=== PATIENT | female | born 1975 | race Caucasian/White ===

== ENCOUNTER 2019-03-18 07:10 | Inpatient (IN) | payer MEDICAID, SELFPAY ==
[2019-03-18] VITALS (18 sets, daily range): BP systolic 76–175; BP diastolic 39–104; PULSE 53–77; RESP 12–18; TEMP 36.2–37.7; O2SAT 95–99; BMI 37.8
--- NOTE | 2019-03-18 07:47 | PLAC_PTH ---
PATIENT: AMINA FAULKNER LOC: [facility] U#:[id number] AGE/SX: 44/F ROOM: WP013 RE03/18/[address]: Dr. Marlee Ramirez MD : 1975 BED: 1 DIS: 03/21/2019 SPEC #: [id number] RECD: 03/18/19 11:23 STATUS: LUZ MARINA REHolden #: [id number] STONE: 03/18/19 07:[address]: Marlee Ramirez DEPT: SURGICAL PATHOLOGY RECD BY: Morgan Posada ENTERED: 03/20/19 08:27 SP TYPE: PLACENTA OTHR DR: Dr. Rylee Brooks, DO Tissues: Placenta, NOS Procedures: Surgery Specimen Level V HEADER OPERATION: Labor and delivery PRE-OP DIAGNOSIS: Preeclampsia, section TISSUE SUBMITTED: Placenta MICROSCOPIC DIAGNOSIS Placenta: Placental disc - third trimester placenta (620 gm). - Focal areas of peripheral infarction (largest measuring 2 cm in greatest dimension. - Increased intervillous and perivillous fibrin deposition. Membranes - acute chorioamnionitis. Umbilical cord - three blood vessels. See comment. SJ:kate 03/21/19 COMMENT Increased spiraling of umbilical cord is noted towards the end of the umbilical cord. MICROSCOPIC DESCRIPTION Slides are reviewed. GROSS DESCRIPTION SPECIMEN: PLACENTA / CLINICAL INFORMATION: A. Weight: 4.15 kg B. Gestational Age: 42 weeks C. Sex: Male PLACENTAL WEIGHT (POST FIXATION): 620 gm PLACENTAL DIMENSIONS: 24 x 12 x 3.5 cm PLACENTAL SHAPE: The body of the placenta is partially disrupted and ovoid shape, however appears to be complete. PLACENTAL WEIGHT FOR GESTATIONAL AGE: >99th percentile MEMBRANES - Present A. Insertion: Marginal B. Site of rupture from edge: The membranes are fragmented and appear to be ruptured at the margin of the placental disc C. Color of membrane: Lynn-bland D. Abnormalities: None UMBILICAL CORD - Present A. Color: Lynn-bland B. Insertion: Paracentral C. Length: 52 cm D. Diameter: 1.5 cm E. Number of vessels: Three F. Abnormalities: Increased spiraling is noted towards the end of the umbilical cord PLACENTAL DISC - Present A. Color of surface: Lynn-bland B. surface abnormalities: None C. Maternal cotyledons: Intact with minimal tears D. Attached retro placental clot: No clot E. Cut surface: Dark red and spongy F. Lesions: Sections reveal four lynn, indurated areas in the peripheral portion of the placenta, the largest measuring 2 cm in greatest dimension. G. Separate clot: Also present in the container and also adherent to the maternal surface are multiple blood clots weighing 30 gm and measuring in aggregate 8 x 4 x 3 cm. SECTIONS SUBMITTED: 1. Membrane roll 2. Cord, maternal end, one lesion. 3. Cord, end, one lesion 4. Placental disc, and maternal surfaces, two lesions 5. Placental disc, and maternal surfaces 6. Placental disc, and maternal surfaces SJ:kate 03/20/19 TC:2 CPT: 54832
[2019-03-18] MEDS: Lactated Ringers 1,000 ML 999 ML IV ×2 (08:00→17:15)
[2019-03-18] MEDS: Cefazolin 2 GM in 0.9% Normal Saline 100 ML IV (08:00)
[2019-03-18 08:05] LABS: Absolute Lymphocyte Count 0.76 X10^3/uL (0.83-4.51); Absolute Neutrophil Count 17.6 X10^3/uL (2.0-7.7); Basophil# 0.02 X10^3/uL; Basophil% 0.1 % (0-1); Hematocrit 42.2 % (37-47); Hemoglobin 14.1 g/dL (12.0-15.0); Lymphocyte # 0.76 X10^3/ul (4.0); Lymphocyte % 3.9 % (19-41); Mean Corp Hgb Conc 33.4 g/dL (32-36); Mean Corpuscular Hgb 29.7 pg (27.0-32.0); Mean Corpuscular Volume 88.8 fL (81-99); Mean Platelet Vol. 11.7 fl (6.2-12.0); Monocyte% 5.1 % (0-10); NRBC Flagged by Analyzer 0 % (0-5); Neutrophil # 17.62 X10^3/uL (2.7-7.7); Neutrophil % 90.4 % (47-70); Platelet Count 257 K/mm3 (150-450); RBC Distribution Width CV 13.5 % (11.6-14.6); RBC Distribution Width SD 44.2 fl (35.1-43.9); Red Blood Count 4.75 M/mm3 (4.2-5.4); White Blood Count 19.5 K/mm3 (4.4-11.0)
[2019-03-18 08:22] LABS: AST(SGOT) 30 U/L (15-37); Alanine Aminotransfer ALT/SGPT 25 U/L (13-56); Creatinine, Serum 0.75 mg/dL (0.55-1.02); EST Glomerular Filtration Rate 90 mL/min (>60); Est Glom Filt Rate - Afr Amer 109 mL/min (>60); Uric Acid 4.6 mg/dL (2.6-6.0)
[2019-03-18 08:34] LABS: Partial Thromboplast Time 27.3 Seconds (24.1-36.2)
[2019-03-18] MEDS: Carboprost Tromethamine 250 MCG/ML Ampul IM (08:35)
[2019-03-18 08:40] LABS: International Normalized Ratio 0.9
--- NOTE | 2019-03-18 08:40 | PCM.HP.OB ---
- Problem List (1) Arrest of dilation, delivered, current hospitalization Status: Acute (2) arrhythmia affecting , antepartum Status: Acute (3) S/P primary low transverse Status: Acute (4) Advanced maternal age (AMA) in Status: Acute (5) Grand multipara Status: Acute (6) Elevated blood pressure affecting in third trimester, antepartum Status: Acute History Date of Admission: 03/18/19 Final ROBERT: 03/04/19 Gestational age: 42 Weeks and 0 Days History of this : This is a 44 year-old, H&P 842 weeks gestational age presents in active labor. Patient had been laboring at a birthing center with a director of player personnel overnight and had some elevated blood pressures there and initial blood pressure here was 170 over 90s followed by 140s over 90s. Upon initial evaluation patient was in significant pain with contractions and was 8 to 9 cm with severe swelling of the cervix. heart rate tracing had moderate variability and initially in a normal baseline but recurrent variable decelerations and then a noted arrhythmia was heard. After discussing with the logging specialist she had recently noted the arrhythmia during labor however had not had her on continuous monitoring. Due to the inability to assess the health of the baby and presence of an arrhythmia and recurrent decelerations and arrest of dilation the decision for primary was made. Surgical History: Surgical History (Last Updated 03/18/19 @ 09:35 by Marlee Ramirez MD) H/O hernia repair Z98.890, Z87.19 Allergies No Known Allergies Allergy (Verified 03/18/19 07:53) Smoking Status: Never smoker Alcohol: None Number of Fetus(es): 1 NST - FHR Rate Baby A Baseline: 140 audible arrhythmia q 3-4 beats with dropped beat Variability:: Moderate Accelerations:: None Decelerations:: Variable NST Reactive:: Non-Reactive FHR Category:: Category II Uterine Activity:: q 2-4 History Past Pregnancies: Past Pregnancies 8 previous vaginal deliveries. One was a twin vaginal delivery or both were lost and delivered at 6 months gestational age. Last delivery was 6 years ago. One miscarriage previously. no known Genetic abnormalities and no congenital defects reported from patient, logging specialist, her .. Labs: Mom's Problem List Problem Status Onset Code Arrest of dilation, delivered, current hospitalization Acute O62.1 arrhythmia affecting , antepartum Acute O36.8390 S/P primary low transverse Acute Z98.891 Advanced maternal age (AMA) in Acute Grand multipara Acute Z64.1 Elevated blood pressure affecting in third trimester, antepartum Acute O16.3 Mom's Labs & Results 03/18/19 03/18/19 03/18/19 07:30 07:30 07:30 WBC 19.5 H RBC 4.75 Hgb 14.1 Hct 42.2 MCV 88.8 MCH 29.7 MCHC 33.4 RDW Std Deviation 44.2 H RDW Coeff of Lavell 13.5 Plt Count 257 MPV 11.7 Immature Gran % (Auto) 0.500 Neut % (Auto) 90.4 H Lymph % (Auto) 3.9 L Banner % (Auto) 5.1 Eos % (Auto) 0.0 Baso % (Auto) 0.1 Absolute Neuts (auto) 17.6 H Absolute Lymphs (auto) 0.76 L Nucleated RBC % 0 PT INR APTT Creatinine Est GFR (MDRD) Af Amer Est GFR (MDRD) Non-Af Uric Acid AST ALT U Random Total Protein Urine Creatinine Protein/Creatinin Ratio RPR Pending Hep Bs Antigen Hepatitis C Antibody HIV 1&2 Antibody Rubella IgG Antibody > 500.0 Blood Type Antibody Screen 03/18/19 03/18/19 03/18/19 07:30 07:30 07:30 WBC RBC Hgb Hct MCV MCH MCHC RDW Std Deviation RDW Coeff of Lavell Plt Count MPV Immature Gran % (Auto) Neut % (Auto) Lymph % (Auto) Banner % (Auto) Eos % (Auto) Baso % (Auto) Absolute Neuts (auto) Absolute Lymphs (auto) Nucleated RBC % PT 12.0 INR 0.9 APTT 27.3 Creatinine Est GFR (MDRD) Af Amer Est GFR (MDRD) Non-Af Uric Acid AST ALT U Random Total Protein Urine Creatinine Protein/Creatinin Ratio RPR Hep Bs Antigen Non-Reactive Hepatitis C Antibody Non-Reactive HIV 1&2 Antibody Non-Reactive Rubella IgG Antibody Blood Type A POSITIVE Antibody Screen NEGATIVE 03/18/19 03/18/19 07:30 09:19 WBC RBC Hgb Hct MCV MCH MCHC RDW Std Deviation RDW Coeff of Lavell Plt Count MPV Immature Gran % (Auto) Neut % (Auto) Lymph % (Auto) Banner % (Auto) Eos % (Auto) Baso % (Auto) Absolute Neuts (auto) Absolute Lymphs (auto) Nucleated RBC % PT INR APTT Creatinine 0.75 Est GFR (MDRD) Af Amer 109 Est GFR (MDRD) Non-Af 90 Uric Acid 4.6 AST 30 ALT 25 U Random Total Protein Pending Urine Creatinine Pending Protein/Creatinin Ratio Pending RPR Hep Bs Antigen Hepatitis C Antibody HIV 1&2 Antibody Rubella IgG Antibody Blood Type Antibody Screen Expected Infant Delivery Method: Stat Section Review of Systems Constitutional: Denies: Fever Eyes: Denies: Blurred vision HEENT: Denies: Difficulty Hearing Cardiovascular: Denies: Chest Pain Respiratory: Denies: Cough, Shortness of Breath Gastrointestinal: Reports: Abdominal Pain, Nausea, Vomiting Gynecological: Reports: Vaginal bleeding - minimal, Vaginal discharge - SROM Skin: Denies: Dryness, Lesions Physical Exam General: Alert, - - uncomfortable with contractions HEENT: Atraumatic, Normocephalic. Negative for: Thyromegaly, Lymphadenopathy Cardiovascular: Regular rate Lungs: Normal air movement Abdomen: Soft, Non Tender, Gravid Neurological: Deep Tendon Reflexes 2+/4 and Symmetrical, Neuro grossly intact. Negative for: Clonus TURBO ELECTRIC OPERATOR: Normal external genitalia. Negative for: Vulvar lesions Estimated gestational size: Large for gestational age Presentation: Cephalic Cervix Dilation (cm): 8.5 Station: -2 Effacement (%): 70 - swollen Assessment/Plan All Active Problems Arrest of dilation, delivered, current hospitalization (Acute) arrhythmia affecting , antepartum (Acute) S/P primary low transverse (Acute) Advanced maternal age (AMA) in (Acute) Grand multipara (Acute) Elevated blood pressure affecting in third trimester, antepartum (Acute) This is a 44 year-old, @ 42 weeks gestational age with arrest of dilation, suspected preeclampsia, arrhythmia and recurrent heart rate decelerations Proceeded with stat for delivery. Apgars 8 and 9 and patient tolerated surgery well under general anesthesia. Labs sent and due to severely elevated blood pressures we will start magnesium sulfate and labetalol per hypertensive protocol for management..
[2019-03-18] MEDS: Oxytocin 30 units/NS 500 ml 30 UNITS/500 ML IV.SOLN 167 UNITS IV (08:50)
[2019-03-18] MEDS: Lactated Ringers 1,000 ML 50 ML IV (09:00)
[2019-03-18 09:25] LABS: HIV - WCH Non-Reactive (Nonreactive); Hepatitis B Surface Antigen Non-Reactive (Nonreactive); Hepatitis C Antibody Non-Reactive (Nonreactive)
[2019-03-18 09:34] LABS: Rubella IgG > 500.0 IU/mL
--- NOTE | 2019-03-18 09:40 | OP.PCM_ITS ---
Problem List (1) Arrest of dilation, delivered, current hospitalization Status: Acute (2) arrhythmia affecting , antepartum Status: Acute (3) S/P primary low transverse Status: Acute (4) Advanced maternal age (AMA) in Status: Acute (5) Grand multipara Status: Acute (6) Elevated blood pressure affecting in third trimester, antepartum Status: Acute (7) Variable heart rate decelerations, antepartum Status: Acute (8) hemorrhage Status: Acute Delivery Classification: Stat Final ROBERT: 03/04/19 Gestational age: 42 Weeks and 0 Days tare worker: Nicole Aleman Type of Anesthesia:: General Special Medications: surgical snow Implants Used: none Date of Procedure: 03/18/19 Pre-Operative Diagnosis: Recurrent heart rate decelerations, arrhythmia, arrest of dilation descent Post-Operative Diagnosis: Same Indications for : Distress, Arrrest of Descent Description of Procedure: [facility] and was evaluated and cervix was noted to not be completely dilated and significantly swollen and unable to be pushed back. Recurrent variable decelerations were seen and then a arrhythmia was heard dropping a beat every third beat. The decision for primary due to heart rate decelerations and arrest of dilation and descent were made and patient was taken back for emergent delivery. Amos catheter was placed. The patient was placed in the dorsal supine position with leftward tilt. Patient was prepped and draped in the normal sterile fashion and then there was some contamination of the upper part of the area and therefore a Betadine additional splash prep was also applied to the area. General anesthesia was induced. Pfannenstiel skin incision was made with the scalpel and carried through to the underlying layer of fascia with the scalpel. Fascia was nicked in the midline and the incision extended laterally. The peritoneum was entered digitally. The incision was stretched and a low transverse uterine incision was made with the scalpel. The 's head was delivered atraumatically followed by the anterior and posterior shoulders without complication the rest of the infant delivered. The cord was clamped and cut and the was handed off to awaiting nurse. The placenta was delivered spontaneously immediately following and was noted to be intact and have a three- vessel cord. The uterus was exteriorized cleared of all clots and debris, and the incision was closed in a double layer closure using #1 Monocryl. The ovaries and fallopian tubes were noted to be within normal limits. The uterus was returned to the maternal abdomen and gutters were cleared of all clots and debris. The peritoneum was closed with 3-0 Monocryl in a running fashion. Gloves were changed prior to fascial closure. Fascia was closed with 0 PDS in a running fashion. Subcutaneous tissue was copiously irrigated and the skin was closed with 3-0 Monocryl in a subcuticular fashion. Mepilex dressing was applied without complication. Patient was taken to recovery in stable condition. Amniotic Membrane Rupture Type: Spontaneous Amniotic Fluid Description: Thick meconium Placenta [facility] Specimen(s) sent to pathology: yes Drain: Amos to straight drain Fluids Replaced: Crystalloid Cord Entanglement: None Esitmated Blood Loss (ml): 1100 Infant Gender: Male (1 minute): 8 (5 minute): 9 Delayed cord clamping: No Antibiotic Given: Ancef 3 grams IV x1, Zithromax 500 mg/5 mL X1 Complications: - - mild hemorrhage due to mild atony - Admit VTE Documentation VTE Present on Admission: No VTE Mechan Device Prophylaxis: SCD's Multi Select Codes - Urinary/Genital Urinary/Genital CPT Codes: 71580 delivery+ Care([facility])
[2019-03-18 09:48] LABS: Protein, Urine (Random) 225.8 mg/dL (<11.9); Protein:Creat Ratio 910 mg/g CRE (0-200)
[2019-03-18] MEDS: Magnesium Sulfate 4gm/100mL 4 GM/100 ML IV.SOLN. IV (09:55)
[2019-03-18] MEDS: HYDROmorphone 1 MG/ML Syringe IV (11:16)
[2019-03-18 11:21] LABS: Pathology Specimen OB SEE PATHOLOGY REPORT
[2019-03-18] MEDS: Magnesium Sulfate 20 GM/500 ML BAG IV (12:28)
[2019-03-18] MEDS: Labetalol 100 MG Tablet PO ×2 (13:16→15:06)
[2019-03-18] MEDS: Ketorolac 30 MG/ML Syringe IV ×2 (15:06→19:23)
[2019-03-18 15:38] LABS: Color, Urine Yellow (Yellow); Glucose, Dipstick Normal (Normal); Ketone-Dipstick Negative (Negative); Leukocyte Esterase-Dipstick 100 /ul (Negative); Nitrite-Dipstick Negative (Negative); Occult Blood-Urine 150 /ul (Negative); Protein-Dipstick Negative (Negative); Urine Bilirubin Dipstick Negative (Negative); Urine Clarity Sl. Cloudy (Clear); Urine Urobilinogen Normal (Normal)
[2019-03-18 15:52] LABS: Red Blood Cells-Urine 10-25 SEEN /hpf (0-5); Squamous Epithelial Cells - UA 0-5 SEEN /hpf (5-10); White Blood Cells 10-25 SEEN /hpf (0-5)
[2019-03-18 15:53] LABS: Bacteria RARE /hpf (None Seen); Mucous, Urine 1+ /hpf (<or=2+)
[2019-03-18 17:10] LABS: Bedside Glucose 122 mg/dL (70-110)
[2019-03-18 17:16] LABS: Hemoglobin 10.6 g/dL (12.0-15.0)
--- NOTE | 2019-03-18 17:16 | NURSING ---
1700 pt called out for help using the call light, she asked me to put the baby in the crib. i took the baby and placed him in the crib when i turned around pt's eyes were rolling back and she was slamming her head into the rocking chair. i placed my hands on both sides of her head to keep her from hurting herself i called for help. Magnesium was shut off. Staff assisted pt back into bed, labs were drawn. was updated and she asked we run a LR bolus and send labs for an H/H. She asked that the magnesium be kept off.
--- NOTE | 2019-03-18 17:24 | NURSING ---
1650 pt called this nurse into the room,asked me to put the baby in the crib, after placing the baby in the crib i turned back to the pt and her eyes were rolled up into her head and she was throwing her head back into the chair. this nurse held her head and called for help, after a few minutes staff was able to transfer the pt back into the bed. prior to transfer bp was 76/39 p 53 r 12 p ox 97% on room air. 1656 bp 100/56 p 68 made aware of pt's condition she gave orders to stop the magnesium and to give a bolus of fluid and to do an H&H. All of this was done. 1720 pt has stated several times she is hungry even after lunch today she states she is hungry, blood sugar obtained with results of 122. 1730 pt's supper is here and she is eating.
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
[2019-03-18] MEDS: Enoxaparin 40 MG/0.4 ML Syringe SC (20:08)
[2019-03-18] MEDS: Lactated Ringers 1,000 ML 100 ML IV (20:10)
--- NOTE | 2019-03-18 22:43 | NURSING ---
Order to hold labetalol for BP less than 120/60 recieved via TOR[facility] from Dr Ramirez via Alex Pemberton rn
[2019-03-19] VITALS (7 sets, daily range): BP systolic 101–133; BP diastolic 52–64; PULSE 70–96; RESP 16–24; TEMP 37.1–39.2; O2SAT 97
[2019-03-19] MEDS: Acetaminophen 500 MG Tablet 1000 MG PO ×3 (00:33→21:54)
[2019-03-19] MEDS: Ketorolac 30 MG/ML Syringe IV ×4 (02:06→20:27)
[2019-03-19 05:25] LABS: Hematocrit 25.4 % (37-47); Hemoglobin 8.5 g/dL (12.0-15.0); Mean Corp Hgb Conc 33.5 g/dL (32-36); Mean Corpuscular Hgb 30.5 pg (27.0-32.0); Mean Platelet Vol. 11.1 fl (6.2-12.0); Platelet Count 197 K/mm3 (150-450); RBC Distribution Width CV 14.2 % (11.6-14.6); RBC Distribution Width SD 47.6 fl (35.1-43.9); Red Blood Count 2.79 M/mm3 (4.2-5.4); White Blood Count 13.3 K/mm3 (4.4-11.0)
[2019-03-19] MEDS: 0.9% Saline Lock 10 ML Syringe IV ×4 (06:02→20:27)
--- NOTE | 2019-03-19 08:48 | PCM.PN.OB ---
Patient Problems: Active and Suspected Problems Arrest of dilation, delivered, current hospitalization (Acute) arrhythmia affecting , antepartum (Acute) S/P primary low transverse (Acute) Advanced maternal age (AMA) in (Acute) Grand multipara (Acute) Elevated blood pressure affecting in third trimester, antepartum (Acute) Variable heart rate decelerations, antepartum (Acute) hemorrhage (Acute) Anemia due to blood loss, acute (Acute) Preeclampsia, severe (Acute) Subjective: doing well no complaints pain controlled no CP SOB N V ambulating well tolerating po lochia moderate, going well. had episode last night where her bp dropped and she was dizzy, ? psych issues as states there were issues in the past and she was in counseling. - Physical Exam General: Alert, Oriented x3, Cooperative Vital Signs Temp Pulse Resp BP Pulse Ox 99.1 F 81 16 104/57 L 99 03/19/19 04:15 03/19/19 04:15 03/19/19 04:15 03/19/19 04:15 03/18/19 18:28 Oxygen Delivery Method Room Air Weight: 220 lb Body Mass Index (BMI) 37.8 Intake and Output for Last 24 Hours 03/17/19 03/18/19 03/19/19 23:59 23:59 23:59 Intake Total 3881.66 / 3881.66 974.7 / 974.7 Output Total 2800 / 2800 1400 / 1400 Balance 1081.66 / 1081.66 -425.3 / -425.3 Laboratory Tests Past 24 Hrs 03/18/19 03/18/19 03/18/19 07:30 07:30 09: WBC RBC Hgb Hct MCV MCH MCHC RDW Std Deviation RDW Coeff of Lavell Plt Count MPV Urine Color Urine Clarity Urine pH Ur Specific [place] Urine Protein Urine Glucose (UA) Urine Ketones Urine Occult Blood Urine Nitrite Urine Bilirubin Urine Urobilinogen Ur Leukocyte Esterase Urine RBC Urine WBC Ur Squamous Epith Cells Urine Bacteria Urine Mucus U Random Total Protein 225.8 H Urine Creatinine 248.00 Protein/Creatinin Ratio 910 H Hep Bs Antigen Non-Reactive Hepatitis C Antibody Non-Reactive HIV 1&2 Antibody Non-Reactive Rubella IgG Antibody > 500.0 03/18/19 03/18/19 03/18/19 15:00 15:00 17:05 WBC RBC Hgb 10.6 L Hct MCV MCH MCHC RDW Std Deviation RDW Coeff of [place]ell Plt Count MPV Urine Color Yellow Urine Clarity Sl. Cloudy Urine pH 5.0 Ur Specific [place] 1.020 Urine Protein Negative Urine Glucose (UA) Normal Urine Ketones Negative Urine Occult Blood 150 H Urine Nitrite Negative Urine Bilirubin Negative Urine Urobilinogen Normal Ur Leukocyte Esterase 100 H Urine RBC 10-25 SEEN Urine WBC 10-25 SEEN Ur Squamous Epith Cells 0-5 SEEN Urine Bacteria RARE Urine Mucus 1+ U Random Total Protein Cancelled Urine Creatinine Cancelled Protein/Creatinin Ratio Cancelled Hep Bs Antigen Hepatitis C Antibody HIV 1&2 Antibody Rubella IgG Antibody 03/19/19 05:15 WBC 13.3 H RBC 2.79 L Hgb 8.5 L Hct 25.4 L MCV 91.0 MCH 30.5 MCHC 33.5 RDW Std Deviation 47.6 H RDW Coeff of Lavell 14.2 Plt Count 197 MPV 11.1 Urine Color Urine Clarity Urine pH Ur Specific [place] Urine Protein Urine Glucose (UA) Urine Ketones Urine Occult Blood Urine Nitrite Urine Bilirubin Urine Urobilinogen Ur Leukocyte Esterase Urine RBC Urine WBC Ur Squamous Epith Cells Urine Bacteria Urine Mucus U Random Total Protein Urine Creatinine Protein/Creatinin Ratio Hep Bs Antigen Hepatitis C Antibody HIV 1&2 Antibody Rubella IgG Antibody POC Glucose 03/18/19 17:08 POC Glucose 122 H Medical Necessity - Tobacco Use Smoking Status: Never smoker Assessment/Plan All Active Problems Arrest of dilation, delivered, current hospitalization (Acute) arrhythmia affecting , antepartum (Acute) S/P primary low transverse (Acute) Advanced maternal age (AMA) in (Acute) Grand multipara (Acute) Elevated blood pressure affecting in third trimester, antepartum (Acute) Variable heart rate decelerations, antepartum (Acute) hemorrhage (Acute) Anemia due to blood loss, acute (Acute) Preeclampsia, severe (Acute) s/p LTCS PPD # 1 1. routine post care 2. breast feeding- support given 3. rh positive 4. rubella immune 5. bps low so magnesium held and no labetalol at this time. continue to monitor 6. anemia- recommend repeat lab in 4 hours to confirm stability. iron.
[2019-03-19] MEDS: Iron Polysaccharide Complex 150 MG CAPSULE PO (09:52)
[2019-03-19 11:16] LABS: Hemoglobin 8.1 g/dL (12.0-15.0)
[2019-03-19] MEDS: Enoxaparin 40 MG/0.4 ML Syringe SC (20:28)
--- NOTE | 2019-03-19 20:57 | RAD_ITS ---
STUDY: X-RAY CHEST REASON FOR EXAM: Female, 44 years old. Fever and pain TECHNIQUE: PA and lateral views of the chest. COMPARISON: None. FINDINGS: The lungs are clear and expanded. There is no demonstrated pleural abnormality. Normal size heart. Normal mediastinum and jory. Normal visualized pulmonary arteries. There is atherosclerotic tortuosity of the aortic arch and descending thoracic aorta. There are diffuse degenerative changes of the visualized thoracic spine. Normal visualized ribs, clavicles, and shoulders. There is no demonstrated abnormality of the visualized soft tissue structures of the upper abdomen. RAD/Chest PA and Lateral IMPRESSION: 1. No acute cardiopulmonary process. Electronically Signed: Cheko Hook MD (Brooks) at 21:43 EDT , Service support ,
[2019-03-19] MEDS: Azithromycin 250 MG Tablet 500 MG PO (21:54)
[2019-03-19] MEDS: Cefazolin 2 GM in 0.9% Normal Saline 100 ML IV (22:05)
[2019-03-19] MEDS: Lactated Ringers 1,000 ML 30 ML IV (22:05)
--- NOTE | 2019-03-19 23:43 | NURSING ---
2020 Temp 102.5.Pt complains for MARIE, muscle aching and sore throat. Dr Ramirez called - orders received for urine culture, rapid throat strep, flu swabs, azithromycin 500 mg po today then 250 mg daily x 4 days, Ancef 2 gm IV q 8 hrs and CXR.
--- NOTE | 2019-03-19 23:47 | NURSING ---
2124 to x-ray per WC. 2134 Back from x-ray.
[2019-03-20] VITALS (10 sets, daily range): BP systolic 125–154; BP diastolic 57–75; PULSE 85–106; RESP 16–22; TEMP 36.7–38.7; O2SAT 96–99
--- NOTE | 2019-03-20 00:02 | NURSING ---
Dr Ramirez notified that pt now has harsh cough and is requesting cough medicine. Order for Pushpasin received.
[2019-03-20] MEDS: guaiFENesin 10 ML UDC (200MG/10ML) PO ×2 (00:25→13:46)
[2019-03-20] MEDS: 0.9% Saline Lock 10 ML Syringe IV ×6 (02:03→18:57)
[2019-03-20] MEDS: Ketorolac 30 MG/ML Syringe IV ×2 (02:03→08:37)
[2019-03-20] MEDS: Acetaminophen 500 MG Tablet 1000 MG PO ×2 (06:09→13:45)
[2019-03-20] MEDS: Cefazolin 2 GM in 0.9% Normal Saline 100 ML IV ×2 (06:14→13:38)
[2019-03-20] MEDS: Iron Polysaccharide Complex 150 MG CAPSULE PO (08:37)
[2019-03-20 11:08] LABS: Absolute Lymphocyte Count 0.87 X10^3/uL (0.83-4.51); Absolute Neutrophil Count 7.8 X10^3/uL (2.0-7.7); Basophil# 0.01 X10^3/uL; Basophil% 0.1 % (0-1); Eosinophil# 0.01 X10^3/uL; Eosinophils% 0.1 % (0-5); Hematocrit 26.2 % (37-47); Hemoglobin 8.6 g/dL (12.0-15.0); Lymphocyte # 0.87 X10^3/ul (4.0); Lymphocyte % 9.5 % (19-41); Mean Corp Hgb Conc 32.8 g/dL (32-36); Mean Corpuscular Hgb 30.7 pg (27.0-32.0); Mean Corpuscular Volume 93.6 fL (81-99); Mean Platelet Vol. 10.7 fl (6.2-12.0); Monocyte# 0.36 X10^3/uL; Monocyte% 3.9 % (0-10); NRBC Flagged by Analyzer 0 % (0-5); Neutrophil # 7.83 X10^3/uL (2.7-7.7); Neutrophil % 85.9 % (47-70); POSITIVE COUNT YES; POSITIVE MORPHOLOGY YES; Platelet Count 208 K/mm3 (150-450); RBC Distribution Width CV 14.4 % (11.6-14.6); RBC Distribution Width SD 49.5 fl (35.1-43.9); White Blood Count 9.1 K/mm3 (4.4-11.0)
[2019-03-20 11:31] LABS: Differential Indicated SCAN CRITERIA MET
--- NOTE | 2019-03-20 12:20 | CASEMGMT ---
Social Work Following up with MOB on car seat and safe place for to sleep. MOB stating that MOB's daughter is brining in car seat today and that FOB is working on getting a crib/bassinet. MOB stating that there will be safe place for infant to sleep prior to MOB's/Infants discharge. This clinical social work therapist stressing the importance of having a safe place for to sleep, MOB voicing understanding and denying any financial concerns or inability to be able to afford/purchase a crib/bassinet. MOB aware that social work will continue to follow up on bassinet/crib status. This clinical social work therapist providing MOB with general resource guide, Help Me Grow, depression, and safe sleeping information. MOB during encounter. MOB stating that is going well and confirming to have a connection with infant. MOB presenting with a pleasant affect. MOB stating that family was in yesterday and are supportive. Nursing staff voicing no concern of MOB ability to be able to care for . Will continue to follow as needed. Lidia JARQUIN, FELIPE
[2019-03-20] MEDS: Senna/Docusate Sodium 1 Tablet PO (13:45)
--- NOTE | 2019-03-20 14:06 | PN.OBGYN_ITS ---
Patient Problems: Active and Suspected Problems Preeclampsia, severe (Acute) Anemia due to blood loss, acute (Acute) Arrest of dilation, delivered, current hospitalization (Acute) arrhythmia affecting , antepartum (Acute) S/P primary low transverse (Acute) Advanced maternal age (AMA) in (Acute) Grand multipara (Acute) Elevated blood pressure affecting in third trimester, antepartum (Acute) Variable heart rate decelerations, antepartum (Acute) hemorrhage (Acute) Subjective: doing well no complaints pain controlled no CP SOB N V ambulating well tolerating po lochia moderate, going well fever last night- some cough but normal chest x ray. uterus appropriate tenderness, no foul discharge. milk starting to come in - Physical Exam General: Alert, Oriented x3 Lungs: Clear to auscultation Cardiovascular: Regular rate Abdomen: Soft Vital Signs Temp Pulse Resp BP Pulse Ox 98.8 F 97 18 143/75 H 99 03/20/19 13:00 03/20/19 12:20 03/20/19 12:20 03/20/19 12:20 03/20/19 12:20 Oxygen Delivery Method Room Air Weight: 220 lb Body Mass Index (BMI) 37.8 Intake and Output for Last 24 Hours 03/18/19 03/19/19 03/20/19 23:59 23:59 23:59 Intake Total 3881.66 / 3881.66 1086.2 / 1086.2 118.5 / 118.5 Output Total 2800 / 2800 2350 / 2350 Balance 1081.66 / 1081.66 -1263.8 / -1263.8 118.5 / 118.5 Microbiology Past 72 Hours 03/19/19 21:10 Group A Streptococcus Rapid Screen - Preliminary Mucosa - Throat 03/19/19 22:00 Influenza Types A,B Direct FA (AMALIA) - Final Interface Orders Laboratory Tests Past 24 Hrs 03/20/19 10:50 WBC 9.1 RBC 2.80 L Hgb 8.6 L Hct 26.2 L MCV 93.6 MCH 30.7 MCHC 32.8 RDW Std Deviation 49.5 H RDW Coeff of Lavell 14.4 Plt Count 208 MPV 10.7 Immature Gran % (Auto) 0.500 Neut % (Auto) 85.9 H Lymph % (Auto) 9.5 L [place] % (Auto) 3.9 Eos % (Auto) 0.1 Baso % (Auto) 0.1 Absolute Neuts (auto) 7.8 H Absolute Lymphs (auto) 0.87 Nucleated RBC % 0 Differential Comment COMMENT Medical Necessity - Tobacco Use Smoking Status: Never smoker Assessment/Plan All Active Problems Preeclampsia, severe (Acute) Anemia due to blood loss, acute (Acute) Arrest of dilation, delivered, current hospitalization (Acute) arrhythmia affecting , antepartum (Acute) S/P primary low transverse (Acute) Advanced maternal age (AMA) in (Acute) Grand multipara (Acute) Elevated blood pressure affecting in third trimester, antepartum (Acute) Variable heart rate decelerations, antepartum (Acute) hemorrhage (Acute) s/p LTCS PPD # 2 1. routine post care 2. breast feeding- support given 3. rh positive 4. rubella immune 5. bps low so magnesium held and no labetalol at this time. continue to monitor 6. anemia- recommend repeat lab in 4 hours to confirm stability. iron. 7. febrile overnight- started on ancef and azithromycin, some cough negative CXR, no tachycardia and white count decreasing. no obvious source of infection
[2019-03-20] MEDS: Naproxen 250 MG Tablet PO (14:37)
--- NOTE | 2019-03-20 18:04 | VDLE_ITS ---
Reason For Study: Pain RIGHT LEFT GSV is normal. GSV is normal. CFV is compressible, spontaneous, phasic, CFV is compressible, spontaneous, phasic, competent and demonstrates normal competent, and demonstrates normal augmentation. augmentation. FV is compressible, spontaneous, phasic, FV is compressible, spontaneous, phasic, competent and demonstrates normal competent and demonstrates normal augmentation. augmentation. POP V is compressible, spontaneous, phasic, POP V is compressible, spontaneous, phasic, competent and demonstrates normal competent and demonstrates normal augmentation. augmentation. T/P Trunk is compressible. T/P Trunk is compressible. PTV is compressible. PTV is compressible. RT PerV is compressible. LT PerV is compressible. Procedure Exam performed portable in patient room. A preliminary report was called and/or faxed to [facility] Pt's nurse. Interpretation Summary No evidence for acute deep venous thrombosis bilateral lower extremities with patent and compressible bilateral great saphenous veins. Ordering Physician: Marlee Ramirez Referring Physician: Rylee Brooks Performed By: Marleen Prieto RVT
--- NOTE | 2019-03-20 18:07 | PCM.PN.OB ---
Patient Problems: Active and Suspected Problems Preeclampsia, severe (Acute) Anemia due to blood loss, acute (Acute) Arrest of dilation, delivered, current hospitalization (Acute) arrhythmia affecting , antepartum (Acute) S/P primary low transverse (Acute) Advanced maternal age (AMA) in (Acute) Grand multipara (Acute) Elevated blood pressure affecting in third trimester, antepartum (Acute) Variable heart rate decelerations, antepartum (Acute) hemorrhage (Acute) Subjective: intermittent fevers- no CP SOB co left flank pain. good urine output - Physical Exam General: Alert, Oriented x3 Lungs: Normal air movement Cardiovascular: Regular rate Abdomen: Soft, Non Tender Extremities: - - left flank pain Vital Signs Temp Pulse Resp BP Pulse Ox 99.5 F H 106 H 18 132/58 H 97 03/20/19 17:50 03/20/19 16:30 03/20/19 16:30 03/20/19 16:30 03/20/19 16:30 Oxygen Delivery Method Room Air Weight: 220 lb Body Mass Index (BMI) 37.8 Intake and Output for Last 24 Hours 03/18/19 03/19/19 03/20/19 23:59 23:59 23:59 Intake Total 3881.66 / 3881.66 1086.2 / 1086.2 233.0 / 233.0 Output Total 2800 / 2800 2350 / 2350 Balance 1081.66 / 1081.66 -1263.8 / -1263.8 233.0 / 233.0 Microbiology Past 72 Hours 03/19/19 21:10 Group A Streptococcus Rapid Screen - Preliminary Mucosa - Throat 03/19/19 22:00 Influenza Types A,B Direct FA (AMALIA) - Final Interface Orders Laboratory Tests Past 24 Hrs 03/20/19 10:50 WBC 9.1 RBC 2.80 L Hgb 8.6 L Hct 26.2 L MCV 93.6 MCH 30.7 MCHC 32.8 RDW Std Deviation 49.5 H RDW Coeff of Lavell 14.4 Plt Count 208 MPV 10.7 Immature Gran % (Auto) 0.500 Neut % (Auto) 85.9 H Lymph % (Auto) 9.5 L [place] % (Auto) 3.9 Eos % (Auto) 0.1 Baso % (Auto) 0.1 Absolute Neuts (auto) 7.8 H Absolute Lymphs (auto) 0.87 Nucleated RBC % 0 Differential Comment COMMENT Medical Necessity - Tobacco Use Smoking Status: Never smoker Assessment/Plan All Active Problems Preeclampsia, severe (Acute) Anemia due to blood loss, acute (Acute) Arrest of dilation, delivered, current hospitalization (Acute) arrhythmia affecting , antepartum (Acute) S/P primary low transverse (Acute) Advanced maternal age (AMA) in (Acute) Grand multipara (Acute) Elevated blood pressure affecting in third trimester, antepartum (Acute) Variable heart rate decelerations, antepartum (Acute) hemorrhage (Acute) s/p LTCS PPD # 2 1. routine post care 2. breast feeding- support given 3. rh positive 4. rubella immune 5. bps low so magnesium held and no labetalol at this time. continue to monitor 6. anemia sec blood loss- stable. iron. 7. febrile still intermittently- started on ancef and azithromycin, switched to ceftriaxone and azithro, questionable pyelonephritis based on flank pain
[2019-03-20] MEDS: Ceftriaxone 1 GM/50 ML BAG IV (19:04)
[2019-03-20] MEDS: oxyCODONE 5 MG Tablet PO (21:05)
[2019-03-20] MEDS: Enoxaparin 40 MG/0.4 ML Syringe SC (21:09)
[2019-03-20] MEDS: Azithromycin 250 MG Tablet PO (21:29)
[2019-03-21 01:20] VITALS: BP 121/64; PULSE 85; RESP 16; TEMP 36.8; O2SAT 98
[2019-03-21] MEDS: Acetaminophen 500 MG Tablet 1000 MG PO ×2 (01:27→13:31)
[2019-03-21 06:21] LABS: Absolute Lymphocyte Count 1.04 X10^3/uL (0.83-4.51); Absolute Neutrophil Count 8.4 X10^3/uL (2.0-7.7); Basophil# 0.02 X10^3/uL; Basophil% 0.2 % (0-1); Eosinophil# 0.11 X10^3/uL; Hematocrit 23.3 % (37-47); Hemoglobin 7.7 g/dL (12.0-15.0); Lymphocyte # 1.04 X10^3/ul (4.0); Lymphocyte % 9.9 % (19-41); Mean Corpuscular Hgb 30.6 pg (27.0-32.0); Mean Corpuscular Volume 92.5 fL (81-99); Mean Platelet Vol. 9.6 fl (6.2-12.0); Monocyte# 0.82 X10^3/uL; Monocyte% 7.8 % (0-10); NRBC Flagged by Analyzer 0 % (0-5); Neutrophil # 8.43 X10^3/uL (2.7-7.7); Neutrophil % 80.3 % (47-70); Platelet Count 224 K/mm3 (150-450); RBC Distribution Width CV 14.2 % (11.6-14.6); RBC Distribution Width SD 48.6 fl (35.1-43.9); Red Blood Count 2.52 M/mm3 (4.2-5.4); White Blood Count 10.5 K/mm3 (4.4-11.0)
[2019-03-21 08:30] VITALS: BP 133/65; PULSE 88; RESP 18; TEMP 36.7; O2SAT 98
[2019-03-21] MEDS: 0.9% Saline Lock 10 ML Syringe IV (08:34)
[2019-03-21] MEDS: Naproxen 250 MG Tablet PO (08:35)
[2019-03-21] MEDS: Senna/Docusate Sodium 1 Tablet PO (08:36)
[2019-03-21] MEDS: Iron Polysaccharide Complex 150 MG CAPSULE PO (08:40)
--- NOTE | 2019-03-21 12:19 | CASEMGMT ---
Social Work Following up with MOB in room to assess for MOB having a safe place for to sleep and car seat. MOB stating to have a crib set up for infant at home and this social work administrator was able to see that the car seat was in MOB's room. MOB cousin present in room and MOB identifies as another support person within the community. MOB presenting with a positive and engaged affect. All questions answered. PLAN: Infant to discharge to home with MOB, FOB and family. Lidia JARQUIN, FELIPE
--- NOTE | 2019-03-21 13:10 | PCM.PN.OB ---
Subjective: Patient continued to be intermittently febrile until started on ceftriaxone and then now has had a significant improvement in symptoms and is doing well without chest pain shortness of breath and pain is controlled. - Physical Exam General: Alert, Oriented x3 Lungs: Clear to auscultation, Normal air movement Abdomen: Soft, Non Tender, Non-Distended Vital Signs Temp Pulse Resp BP Pulse Ox 98.0 F 88 18 133/65 H 98 03/21/19 08:30 03/21/19 08:30 03/21/19 08:30 03/21/19 08:30 03/21/19 08:30 Oxygen Delivery Method Room Air Weight: 220 lb Body Mass Index (BMI) 37.8 Intake and Output for Last 24 Hours 03/19/19 03/20/19 03/21/19 23:59 23:59 23:59 Intake Total 1086.2 / 1086.2 283.0 / 283.0 Output Total 2350 / 2350 Balance -1263.8 / -1263.8 283.0 / 283.0 Microbiology Past 72 Hours 03/19/19 21:15 Urine Culture - Final Urine, Clean Catch Culture exhibits no growth. 03/19/19 21:10 Group A Streptococcus Rapid Screen - Final Mucosa - Throat 03/19/19 22:00 Influenza Types A,B Direct FA (AMALIA) - Final Interface Orders Laboratory Tests Past 24 Hrs 03/21/19 06:10 WBC 10.5 RBC 2.52 L Hgb 7.7 L Hct 23.3 L MCV 92.5 MCH 30.6 MCHC 33.0 RDW Std Deviation 48.6 H RDW Coeff of Lavell 14.2 Plt Count 224 MPV 9.6 Immature Gran % (Auto) 0.800 Neut % (Auto) 80.3 H Lymph % (Auto) 9.9 L [place] % (Auto) 7.8 Eos % (Auto) 1.0 Baso % (Auto) 0.2 Absolute Neuts (auto) 8.4 H Absolute Lymphs (auto) 1.04 Nucleated RBC % 0 Medical Necessity - Tobacco Use Smoking Status: Never smoker Assessment/Plan All Active Problems Pyelonephritis (Acute) Preeclampsia, severe (Acute) Anemia due to blood loss, acute (Acute) Arrest of dilation, delivered, current hospitalization (Acute) arrhythmia affecting , antepartum (Acute) S/P primary low transverse (Acute) Advanced maternal age (AMA) in (Acute) Grand multipara (Acute) Elevated blood pressure affecting in third trimester, antepartum (Acute) Variable heart rate decelerations, antepartum (Acute) hemorrhage (Acute) s/p LTCS PPD # 3 1. routine post care 2. breast feeding- support given 3. rh positive 4. rubella immune 5. Preeclampsia - bps low so magnesium held and no labetalol at this time. continue to monitor 6. anemia sec blood loss- stable. iron. 7. Suspect pyelonephritis patient started on ceftriaxone. Improving.
[2019-03-21 13:11] VITALS: BP 143/67; PULSE 94; RESP 18; TEMP 36.8; O2SAT 98
--- NOTE | 2019-03-21 13:11 | DS.PCM_ITS ---
Discharge Date and Diagnosis Date of Admission: 03/18/19 Date of Discharge: 03/21/19 - Primary Discharge Diagnosis Active and Suspected Problems Arrest of dilation, delivered, current hospitalization (Acute) arrhythmia affecting , antepartum (Acute) S/P primary low transverse (Acute) Advanced maternal age (AMA) in (Acute) Grand multipara (Acute) Elevated blood pressure affecting in third trimester, antepartum (Acute) Variable heart rate decelerations, antepartum (Acute) hemorrhage (Acute) Hospital Course and Treatment Imaging Results: neg cxr and doppler of lower extremities Operations: - - LTCS Summary of Care Provided: The patient is a 44 year old F presented in active labor with arrest of descent and swelling of the cervix. Patient had received care from a service line layer in the community and had been laboring at the birthing center without any cervical change past 9 cm for several hours. Upon initial evaluation there was significant swelling of the cervix noted and patient was very uncomfortable and initial heart rate evaluation showed moderate variability with recurrent periodic variable decelerations. Then a arrhythmia was noted and due to suspected distress a low transverse was performed. Patient underwent delivery well without complication and was given preoperative and postoperative antibiotics and then postoperatively she developed a persistent fever and was started on Ancef and azithromycin, she had some cough and initial shortness of breath and a negative chest x-ray. She also had some back pain and after 24 hours was still intermittently febrile so Ancef was changed to ceftriaxone and then the patient remained afebrile and had an improvement in her back pain so pyelonephritis was suspected. Upon further questioning of the patient, patient had had latent symptoms prior to being admitted to the hospital with underlying back pain. Patient was stable for discharge to home on Keflex and pain medications - Physical Exam Vital Signs Temp Pulse Resp BP Pulse Ox 98.0 F 88 18 133/65 H 98 03/21/19 08:30 03/21/19 08:30 03/21/19 08:30 03/21/19 08:30 03/21/19 08:30 Oxygen Delivery Method Room Air Weight: 220 lb Body Mass Index (BMI) 37.8 Intake and Output for Last 24 Hours 03/19/19 03/20/19 03/21/19 23:59 23:59 23:59 Intake Total 1086.2 / 1086.2 283.0 / 283.0 Output Total 2350 / 2350 Balance -1263.8 / -1263.8 283.0 / 283.0 Microbiology Past 72 Hours 03/19/19 21:15 Urine Culture - Final Urine, Clean Catch Culture exhibits no growth. 03/19/19 21:10 Group A Streptococcus Rapid Screen - Final Mucosa - Throat 03/19/19 22:00 Influenza Types A,B Direct FA (AMALIA) - Final Interface Orders Laboratory Tests Past 24 Hrs 03/21/19 06:10 WBC 10.5 RBC 2.52 L Hgb 7.7 L Hct 23.3 L MCV 92.5 MCH 30.6 MCHC 33.0 RDW Std Deviation 48.6 H RDW Coeff of Lavell 14.2 Plt Count 224 MPV 9.6 Immature Gran % (Auto) 0.800 Neut % (Auto) 80.3 H Lymph % (Auto) 9.9 L [place] % (Auto) 7.8 Eos % (Auto) 1.0 Baso % (Auto) 0.2 Absolute Neuts (auto) 8.4 H Absolute Lymphs (auto) 1.04 Nucleated RBC % 0 Discharge Diet: No Restrictions Discharge Activity: Return to Normal Activity Home Medications: Medications to take at Discharge Cephalexin [Keflex] 500 mg PO Q6 12 Days #28 cap 03/21/19 Naproxen [Naprosyn] 250 - 500 mg PO Q8H PRN PRN #30 tab 03/21/19 Oxycodone HCl/Acetaminophen [Percocet 5-325] 1 - 2 tab PO Q4H PRN PRN 7 Days #15 tab 03/21/19 Following Prescrptions Were Given to Patient: Cephalexin [Keflex] 500 mg PO Q6 12 Days #28 cap Transmission Status: Received by [facility] Naproxen [Naprosyn] 250 - 500 mg PO Q8H PRN PRN #30 tab PRN Reason: MILD PAIN Transmission Status: Received by [facility] Oxycodone HCl/Acetaminophen [Percocet 5-325] 1 - 2 tab PO Q4H PRN PRN 7 Days #15 tab PRN Reason: Pain Transmission Status: Received by [facility] Primary Care Physician: Rylee Brooks DO [Primary Care Provider] - Medical Necessity - Tobacco Use Smoking Status: Never smoker Meaningful Use Info Meaningful Use Diagnoses (Choose all that apply): None applicable
--- NOTE | 2019-03-21 13:11 | DCINST_ITS ---
Discharge Diet: No Restrictions Discharge Activity: May Not Drive - for 2 weeks, May not drive while taking narcotic pain medications., May Shower, May Take a Tub Bath - in 7 days May resume sexual activity in: 4-6 weeks Lifting Restrictions: 20 pounds Additional Activity Instructions:: Nothing in the vagina for 4-6 weeks. You may return to work/school in 6 weeks. Call your doctor if your incision/area has: Continuous Slow Oozing, Sudden Increased Bleeding, Increased Pain/ Swelling, Increased Redness, Foul Smelling Discharge Call your doctor if you observe: Fever of 101 or Higher, Using more than one pad per hour - for 2 hours Suture Line Care: Avoid Pulling/Pushing, Avoid Pinching/Bending Cleanse incision/area with: Keep Dressing Clean & Dry Additional Instructions: If you experience any of the following, contact your healthcare provider. * Bleeding that soaks a pad every hour for 2 hours * Fever 100.4 or higher * Unrelieved incision or abdominal pain * Swelling, redness, discharge or bleeding from your incision or episiotomy site * Your incision begins to separate * Problems urinating (including inability to urinate or burning while urinating). * Visual changes * Severe headache * Flu-like symptoms * Pain or redness in one of both of your breasts * Pain, warmth, tenderness or swelling in your legs, especially the calf area * Frequent nausea and vomiting * Symptoms of depression or anxiety If you experience any of the following, call 911 or go to the nearest Emergency Room. * Chest pain * Problems breathing * Seizure activity * Partial or complete paralysis of a body part, slurred speech, weakness or drooping of the face, or a sudden inability to walk or hold your balance Allergies/Adverse Reactions: Allergies No Known Allergies Allergy (Verified 03/18/19 07:53) Medications to take at Discharge Cephalexin [Keflex] 500 mg PO Q6 12 Days #28 cap 03/21/19 Naproxen [Naprosyn] 250 - 500 mg PO Q8H PRN PRN #30 tab 03/21/19 Oxycodone HCl/Acetaminophen [Percocet 5-325] 1 - 2 tablet PO Q4H PRN PRN 7 Days #15 tablet 03/21/19 The following prescriptions were given: Cephalexin [Keflex] 500 mg PO Q6 12 Days #28 cap Transmission Status: Pending to [facility] Naproxen [Naprosyn] 250 - 500 mg PO Q8H PRN PRN #30 tab PRN Reason: MILD PAIN Transmission Status: Pending to [facility] Oxycodone HCl/Acetaminophen [Percocet 5-325] 1 - 2 tablet PO Q4H PRN PRN 7 Days #15 tablet PRN Reason: Pain Transmission Status: Sent to [facility] Follow-Up: Call to make an appointment with your doctor for an incision check in 1-2 weeks. You will also need a 6 week post- follow up appointment. Test results from this visit will be discussed in further detail at your follow- up appointment, if applicable. Please Follow Up With: Marlee Ramirez MD - Call to make an appointment for an incision check in 1-2 [phone] When: You will need a post- check in 6 weeks. Primary Care Physician: Rylee Brooks DO [Primary Care Provider] -
[2019-03-21 17:20] VITALS: TEMP 36.8
[2019-03-24 01:45] LABS: Rapid Plasmin Reagin (RPR) NONREACTIVE (NONREACTIVE)
== END 2019-03-21 17:35 | disposition home or self-care (01) | DRG 540 ==
PROVIDERS: Admitting Provider Obstetrics & Gynecology; Family Provider Family Medicine; PCP Family Medicine; Referring Provider Obstetrics & Gynecology; Visit Provider Obstetrics & Gynecology
DX: O76 Abnormality in fetal heart rate and rhythm complicating labor and delivery (principal); O62.1 Secondary uterine inertia; O42.92 Full-term premature rupture of membranes, unspecified as to length of time between rupture and onset of labor; O48.0 Post-term pregnancy; O77.0 Labor and delivery complicated by meconium in amniotic fluid; O72.1 Other immediate postpartum hemorrhage; O99.03 Anemia complicating the puerperium; D62 Acute posthemorrhagic anemia; O86.4 Pyrexia of unknown origin following delivery; O14.14 Severe pre-eclampsia complicating childbirth; O23.03 Infections of kidney in pregnancy, third trimester; O34.43 Maternal care for other abnormalities of cervix, third trimester; O99.89 Other specified diseases and conditions complicating pregnancy, childbirth and the puerperium; R05 Cough; R06.02 Shortness of breath; Z3A.42 42 weeks gestation of pregnancy; Z37.0 Single live birth
CPT/HCPCS: 59050; 71046; 81001; 82565; 82570; 82962; 84156; 84450; 84460; 84550; 85018; 85025; 85027; 85610; 85730; 86592; 86703; 86762; 86803; 86850; 86900; 86901; 87086; 87340; 87804; 87880; 88307; 93970; 99218; J7120; A4216; G0378; J2405

== ENCOUNTER → 2019-03-27 11:05 | Outpatient (CLI) | payer MEDICAID, SELFPAY ==
[2019-03-27 10:27] VITALS: BMI 37.8
[2019-03-27 11:28] LABS: Absolute Lymphocyte Count 1.11 X10^3/uL (0.83-4.51); Absolute Neutrophil Count 10.3 X10^3/uL (2.0-7.7); Basophil# 0.04 X10^3/uL; Basophil% 0.3 % (0-1); Eosinophil# 0.07 X10^3/uL; Eosinophils% 0.5 % (0-5); Hematocrit 27.1 % (37-47); Hemoglobin 8.9 g/dL (12.0-15.0); Lymphocyte # 1.11 X10^3/ul (4.0); Lymphocyte % 8.5 % (19-41); Mean Corp Hgb Conc 32.8 g/dL (32-36); Mean Corpuscular Hgb 30.1 pg (27.0-32.0); Mean Corpuscular Volume 91.6 fL (81-99); Mean Platelet Vol. 8.3 fl (6.2-12.0); Monocyte# 1.24 X10^3/uL; Monocyte% 9.4 % (0-10); NRBC Flagged by Analyzer 0 % (0-5); Neutrophil # 10.28 X10^3/uL (2.7-7.7); Neutrophil % 78.3 % (47-70); Platelet Count 665 K/mm3 (150-450); RBC Distribution Width CV 14.6 % (11.6-14.6); Red Blood Count 2.96 M/mm3 (4.2-5.4); White Blood Count 13.1 K/mm3 (4.4-11.0)
== END ==
PROVIDERS: Family Provider Family Medicine; PCP Family Medicine; Referring Provider Nurse Practitioner Women's Health; Visit Provider Nurse Practitioner Women's Health
DX: T81.40XA Infection following a procedure, unspecified, initial encounter (principal); T81.31XA Disruption of external operation (surgical) wound, not elsewhere classified, initial encounter
CPT/HCPCS: 36415; 85025; 87070; 87205